=== PATIENT | male | born 1970 | race Caucasian/White ===

== ENCOUNTER → 2020-03-26 | Outpatient (CLI) | payer OTHER | END | disposition home or self-care (01) | LOC: CFH 13:02 | PROVIDERS: ATTEND Internal Medicine Hospice and Palliative Medicine | DX: K76.0 Fatty (change of) liver, not elsewhere classified (principal); I87.8 Other specified disorders of veins; N23 Unspecified renal colic; R16.0 Hepatomegaly, not elsewhere classified; M51.36 Other intervertebral disc degeneration, lumbar region | CPT/HCPCS: 74176 ==